=== PATIENT | female | born 1975 | race Hispanic/Latino ===

== ENCOUNTER 2017-06-18 17:09 | Inpatient (IN) | payer OTHER ==
[~2017-06-18 17:09] MED LIST: ISOVUE-370 76%-LOCM 1 ML ONE
[2017-06-18 18:07] LABS: #Basophils 0.1 thou/uL (0.0-0.2); #Lymphocytes 2.2 thou/uL (1.20-3.40); #Monocytes 0.7 thou/uL (0.11-0.59); #Neutrophils 11.7 thou/uL (1.40-6.50); %Basophils 0.5 % (0.0-1.0); %Eosinophils 0.3 % (0.0-10.0); %Lymphocytes 14.8 % (21.0-51.0); %Monocytes 4.5 % (0.0-10.0); %Neutrophils 80.1 % (42.0-75.0); Hemoglobin 13.5 g/dL (12.0-16.0); Mean Corpuscular HGB CONC 32.2 g/dL (32.0-36.0); Mean Corpuscular Hemoglobin 24.5 pg (27.0-31.0); Mean Corpuscular Volume 76.1 fl (81.0-99.0); Mean Platelet Volume 7.8 fL (7.4-10.4); Platelet Count 352 thou/uL (130-400); RBC Distribution Width 15.3 % (11.5-14.5); White Blood Cell (WBC) Count 14.6 thou/uL (4.8-10.8)
[2017-06-18 18:38] LABS: ALT (SGPT) 13 U/L (8-55); AST (SGOT) 12 U/L (5-34); Alkaline Phosphatase 46 U/L (40-150); Anion Gap 13 mmol/L (10-20); BUN (Urea Nitrogen) 14 mg/dL (7.0-18.7); Bilirubin, Total 0.2 mg/dL (0.2-1.2); Calc. Creatinine Clearance 0 mL/min (70-130); Calcium 9.8 mg/dL (7.8-10.44); Carbon Dioxide 23 mmol/L (22-29); Chloride 102 mmol/L (98-107); Estimated GFR-MDRD Greater than 90; Globulin 3.9 g/dL (2.4-3.5); Glucose 165 mg/dL (70-105); Lipase 44 U/L (8-78); Potassium 4.4 mmol/L (3.5-5.1); Protein, Total 7.9 g/dL (6.0-8.3); Sodium 134 mmol/L (136-145)
[2017-06-18 19:19] LABS: Bilirubin Negative (Negative); Blood, Urine Negative (Negative); Clarity CLEAR (Clear); Glucose, Urine (Dipstick) Negative (Negative); Leukocyte Negative (Negative); Nitrite Negative (Negative); Protein, Urine (Dipstick) Negative (Neg-Trace); Specific Gravity, Urine 1.015 (1.002-1.036); Urobilinogen 0.2 mg/dL (0.2-1.0); pH, Urine 6.5 (5.0-9.0)
[2017-06-18] MEDS ORDERED: Ondansetron HCl/PF 4 MG/2 ML Vial ONE (21:43)
[2017-06-18 22:10] LABS: Pregnancy Test - Urine (BHCG) Negative (Negative); Pregu Control Background? CLEAR/WHITE (CLR/WHITE); Pregu Control Bar Appear? YES (CONTROL BAR); Specific Gravity 1.015 (1.002-1.036)
--- NOTE | 2017-06-18 22:46 | CT ---
CT OF ABDOMEN AND PELVIS PERFORMED WITH CONTRAST ENHANCEMENT: 06/18/17 HISTORY: Abdominal pain, nausea and vomiting. The lung bases are clear. The liver and spleen show no focal abnormalities. There is suggestion of some fatty changes of the li nate. The pancreas region is unremarkable. The gallbladder has been removed. Right and left adrenal glands and right and left kidneys are normal in appearance. There is no signif icant periaortic or mesenteric adenopathy. There is a partial small bowel obstruction related to a pa raumbilical hernia with nondilated distal small bowel. CT OF PELVIS PERFORMED WITH CONTRAST ENHANCEMENT: Follicles are seen involving the right adnexa. The appendix is normal in appearance. IMPRESSION: Partial small bowel obstruction caused by paraumbilical hernia with herniation of small bowel. POS: COOPER
[2017-06-18] MEDS ORDERED: Pantoprazole 40 MG VIAL ONE (22:58)
[2017-06-19] MEDS ORDERED: Oxymetazoline HCl 0.05% ( 15 ML ) ONE (00:21)
[2017-06-19] MEDS ORDERED: Benzocaine 20% Spray 60 ML CAN ONE (00:21)
[2017-06-19] MEDS ORDERED: Ondansetron ODT 4 MG TAB SL PRN (02:09)
[2017-06-19] MEDS ORDERED: Ondansetron HCl/PF 4 MG/2 ML Vial IVP PRN ×3 (02:09→11:01)
[2017-06-19] MEDS ORDERED: Morphine 5 MG/ML SYRINGE SLOW IVP PRN ×3 (02:10→11:26)
[2017-06-19] MEDS: Sodium Chloride 0.9% 1,000 ML IV SCH ×2 (02:30→11:20)
[2017-06-19 04:38] VITALS: BMI 37.5
[2017-06-19] MEDS ORDERED: CEFAZOLIN/Water 2 GM/20 ML SYRINGE SLOW IVP SCH (07:30)
--- NOTE | 2017-06-19 07:36 | HP ---
CHIEF COMPLAINT: Abdominal pain. HISTORY: A 41-year-old female with a 2-day history of severe periumbilical pain followed by nausea a nd vomiting. Last bowel movement and flatus was yesterday. PAST MEDICAL HISTORY: Morbid obesity, diabetes, hypertension, kidney stones. PAST SURGICAL HISTORY: She has had a cholecystectomy, carpal tunnel. She had a kidney stent. MEDICATIONS: Metformin, lisinopril, Lopid, iron. ALLERGIES: No known drug allergies. FAMILY HISTORY: Diabetes. SOCIAL HISTORY: She is incarcerated. She is . No tobacco, no alcohol. PHYSICAL EXAMINATION: VITAL SIGNS: Temperature 97.6, pulse 80, blood pressure 140/87, 96% saturation. GENERAL: She is a morbidly obese female, lying still. HEENT: Unremarkable. LUNGS: Clear. HEART: Regular rate and rhythm. ABDOMEN: Obese. There is very minimal tenderness, no peritoneal signs. I cannot feel any mass. EXTREMITIES: Unremarkable. LABORATORY DATA AND IMAGING: White count 14.6, H&H is 13 and 41, platelet count 352. Electrolytes s howed glucose of 165, creatinine 0.67, otherwise fine. CT scan shows a small-bowel obstruction with a periumbilical hernia containing small bowel causing the obstruction. ASSESSMENT: Incarcerated ventral hernia with small-bowel obstruction. PLAN: Laparotomy, repair of possible small bowel resection and repair of hernia. CONSENT: I have discussed the planned procedure as well as risk of bleeding, infection, recurrence o f the hernia, injury to bowel, need to remove bowel. She understands and gives informed consent.
--- NOTE | 2017-06-19 08:49 | RAD ---
FRONTAL RADIOGRAPH ABDOMEN: Date: 06-19-17 History: Evaluate nasogastric tube, nausea, vomiting, pain. FINDINGS: There is a nasogastric tube extending into the left upper quadrant, side port near the gastroesophage al junction and the distal tip likely within the region of the gastric body. Clips in the right upper quadrant suggest prior cholecystectomy. There is contrast media within bilateral renal collecting sy stems associated with recent CT exam. IMPRESSION: Nasogastric tube as above. POS: COOPER
[2017-06-19] MEDS ORDERED: Meperidine HCl/PF 25 MG/ML VIAL SLOW IVP PRN (09:11)
[2017-06-19] MEDS ORDERED: Promethazine HCl 25 MG/ML VIAL IM PRN ×2 (09:11→11:01)
[2017-06-19] MEDS ORDERED: Promethazine HCl 25 MG/ML VIAL SLOW IVP PRN (09:11)
[2017-06-19] MEDS ORDERED: Midazolam HCl 2 mg/2 ml Vial ONE (09:21)
[2017-06-19] MEDS ORDERED: Fentanyl 100 MCG/2 ML VIAL ONE ×2 (09:22→11:42)
[2017-06-19] MEDS ORDERED: HYDROmorphone 0.5 MG/0.5 ML SYRINGE ONE (09:22)
[2017-06-19] MEDS ORDERED: CEFAZOLIN/Water 2 GM/20 ML SYRINGE ONE (09:26)
[2017-06-19] MEDS ORDERED: Dextrose 50% Abboject 50 ML SYRINGE SLOW IVP PRN (11:01)
[2017-06-19] MEDS ORDERED: Dextrose 5% in Water 1,000 ML IV PRN (11:01)
[2017-06-19] MEDS ORDERED: HYDROcodone/Acetaminophen 10/325 mg Tablet PO PRN (11:01)
[2017-06-19] MEDS ORDERED: hydrALAZINE 20 MG/ML VIAL SLOW IVP PRN (11:01)
--- NOTE | 2017-06-19 11:24 | OP ---
DATE OF PROCEDURE: 06/19/2017 PREOPERATIVE DIAGNOSIS: Incarcerated ventral hernia. SURGEON: Robbin Jj M.D. PROCEDURE PERFORMED: Open repair of incarcerated incisional hernia. INDICATIONS: The patient is a 41-year-old female who is morbidly obese, who came in with abdominal p ain and a CT scan showed a small-bowel obstruction originating from a periumbilical hernia. She had had previous surgery at the umbilicus. FINDINGS: The bowel had been reduced. The actual defect was small, 1.5 cm, fairly large hernia sac that was removed. PROCEDURE: After informed consent was obtained, the patient was taken to the operating room. She wa s given general endotracheal anesthesia. She was placed in the supine position. The abdomen was pre pped and draped in the usual fashion. An upper midline incision was performed just above the umbilic us. The subcu divided sharply. She is morbidly obese, so I really could not feel anything. Eventua lly I found the hernia sac. The hernia sac was dissected out and opened, it was an empty. There was no bowel in it at the time that it was opened. The hernia sac was excised utilizing electrocautery. The defect was small, about 1.5 cm. It was closed transversely with interrupted [id number] o f 0 Prolene. Hemostasis assured. The wound was thoroughly irrigated and irrigation fluid removed. The subcutaneous reapproximated with interrupted 3-0 Vicryl. The skin closed with skin joan. Omer rile bandage applied. The patient tolerated the procedure well and transferred to recovery in good c ondition. Sponge and needle count verified correct x2.
[2017-06-19] MEDS ORDERED: Ondansetron HCl/PF 4 MG/2 ML Vial ONE (14:25)
[2017-06-19] MEDS ORDERED: Lidocaine 1% PF 5 ML VIAL ONE (14:25)
[2017-06-19] MEDS ORDERED: Glycopyrrolate 0.2 MG/ML 5 ML SYRINGE ONE (14:25)
[2017-06-19] MEDS ORDERED: Dexamethasone 20 MG/5 ML VIAL ONE (14:25)
[2017-06-19] MEDS ORDERED: Propofol 200 MG/20 ML VIAL ONE (14:25)
[2017-06-19] MEDS: Lactated Ringer's 1,000 ML IV SCH ×2 (14:47→20:54)
[2017-06-19] MEDS: HYDROcodone/Acetaminophen 10/325 mg Tablet PO PRN ×2 (14:47→20:53)
[2017-06-19] MEDS: Famotidine 20 MG TAB PO SCH ×2 (20:02→20:53)
[2017-06-19] MEDS: Famotidine/PF 20 mg/2ml Vial SLOW IVP SCH (20:04)
[2017-06-20] MEDS: HYDROcodone/Acetaminophen 10/325 mg Tablet PO PRN ×2 (04:04→09:33)
[2017-06-20 06:11] LABS: #Basophils 0.1 thou/uL (0.0-0.2); #Lymphocytes 1.7 thou/uL (1.20-3.40); #Monocytes 0.6 thou/uL (0.11-0.59); #Neutrophils 8.7 thou/uL (1.40-6.50); %Basophils 0.7 % (0.0-1.0); %Eosinophils 0.2 % (0.0-10.0); %Lymphocytes 15.4 % (21.0-51.0); %Monocytes 5.7 % (0.0-10.0); %Neutrophils 77.9 % (42.0-75.0); Anion Gap 12 mmol/L (10-20); BUN (Urea Nitrogen) 6 mg/dL (7.0-18.7); Calc. Creatinine Clearance 164 mL/min (70-130); Calcium 8.9 mg/dL (7.8-10.44); Carbon Dioxide 24 mmol/L (22-29); Chloride 105 mmol/L (98-107); Estimated GFR-MDRD Greater than 90; Glucose 147 mg/dL (70-105); Hemoglobin 11.8 g/dL (12.0-16.0); Mean Corpuscular Hemoglobin 24.1 pg (27.0-31.0); Mean Corpuscular Volume 77.7 fl (81.0-99.0); Mean Platelet Volume 8.3 fL (7.4-10.4); Platelet Count 295 thou/uL (130-400); RBC Distribution Width 15.5 % (11.5-14.5); Sodium 137 mmol/L (136-145); White Blood Cell (WBC) Count 11.2 thou/uL (4.8-10.8)
[2017-06-20] MEDS ORDERED: Enoxaparin Sodium 40 MG/0.4 ML SYRINGE SC SCH (09:00)
[2017-06-20] MEDS: Famotidine 20 MG TAB PO SCH (09:32)
[2017-06-20] MEDS: Famotidine/PF 20 mg/2ml Vial SLOW IVP SCH (09:38)
[2017-06-20 11:54] VITALS: BP 116/79; TEMP 97.7
[2017-06-20] MEDS: Lactated Ringer's 1,000 ML IV SCH (12:29)
--- NOTE | 2017-06-20 15:06 | DIS ---
DISCHARGE DIAGNOSIS: Incarcerated ventral hernia. PROCEDURES DURING ADMISSION: Repair of incarcerated ventral hernia. HOSPITAL COURSE: The patient was admitted. She had a small-bowel obstruction with small bowel incar cerated in this ventral periumbilical hernia. She had a previous laparoscopic cholecystectomy so we are calling it incisional. She went to the operating room where she underwent an abdominal wall expl oration and repair of hernia. Postoperatively, she has done well. She is tolerating liquids well. Pain is controlled on p.o. medications. She is discharged home in good condition, afebrile on Tyleno l #3 one to two p.o. q.4 hours p.r.n., Colace 1 p.o. b.i.d. She will follow up with me in 2 weeks.
== END 2017-06-20 12:21 | DRG 355 ==
LOC: ERS 17:09 → OBSVTOIN 06-19 → SURG A 06-19
PROVIDERS: ADMIT Surgery; ATTEND Surgery
PROC: 0WQF0ZZ Repair Abdominal Wall, Open Approach (ICD-10-PCS; principal; 2017-06-19)
DX: K43.0 Incisional hernia with obstruction, without gangrene (principal); E66.01 Morbid (severe) obesity due to excess calories; I10 Essential (primary) hypertension; Z87.442 Personal history of urinary calculi; E11.9 Type 2 diabetes mellitus without complications; Z79.84 Long term (current) use of oral hypoglycemic drugs; Z68.37 Body mass index [BMI] 37.0-37.9, adult
CPT/HCPCS: 36415; 74018; 74177; 80048; 80053; 81003; 81025; 83690; 85025; 96361; 96372; 96374; 96375; J2270; A4216; C9113; J0131; J1100; J1170; J1650; J2001; J2250; J2405; J2704; J3010

== ENCOUNTER 2017-06-30 15:11 | Emergency (ER) | payer OTHER ==
[2017-06-30 15:52] LABS: #Eosinphils 0.1 thou/uL (0.0-0.7); #Lymphocytes 1.7 thou/uL (1.20-3.40); #Monocytes 0.9 thou/uL (0.11-0.59); #Neutrophils 11.4 thou/uL (1.40-6.50); %Basophils 0.2 % (0.0-1.0); %Eosinophils 0.9 % (0.0-10.0); %Lymphocytes 12.3 % (21.0-51.0); %Neutrophils 80.6 % (42.0-75.0); Mean Corpuscular HGB CONC 32.1 g/dL (32.0-36.0); Mean Corpuscular Hemoglobin 24.6 pg (27.0-31.0); Mean Corpuscular Volume 76.6 fl (81.0-99.0); Mean Platelet Volume 7.9 fL (7.4-10.4); Platelet Count 361 thou/uL (130-400); RBC Distribution Width 15.4 % (11.5-14.5); Red Blood Cell (RBC) Count 5.28 mill/uL (4.20-5.40); White Blood Cell (WBC) Count 14.2 thou/uL (4.8-10.8)
[2017-06-30 16:15] LABS: ALT (SGPT) 26 U/L (8-55); AST (SGOT) 13 U/L (5-34); Alkaline Phosphatase 48 U/L (40-150); Anion Gap 14 mmol/L (10-20); BUN (Urea Nitrogen) 14 mg/dL (7.0-18.7); Bilirubin, Total 0.3 mg/dL (0.2-1.2); Calc. Creatinine Clearance 0 mL/min (70-130); Calcium 9.8 mg/dL (7.8-10.44); Carbon Dioxide 22 mmol/L (22-29); Chloride 105 mmol/L (98-107); Estimated GFR-MDRD 89; Globulin 3.7 g/dL (2.4-3.5); Glucose 154 mg/dL (70-105); Lipase 90 U/L (8-78); Potassium 4.3 mmol/L (3.5-5.1); Protein, Total 7.7 g/dL (6.0-8.3); Sodium 137 mmol/L (136-145)
[2017-06-30 17:04] LABS: Bilirubin Negative (Negative); Blood, Urine Moderate (Negative); Clarity CLEAR (Clear); Glucose, Urine (Dipstick) Negative (Negative); Leukocyte Negative (Negative); Nitrite Negative (Negative); Protein, Urine (Dipstick) Negative (Neg-Trace); Specific Gravity, Urine 1.016 (1.002-1.036); Urobilinogen 0.2 mg/dL (0.2-1.0); pH, Urine 5.5 (5.0-9.0)
[2017-06-30 17:06] LABS: Bacteria/HPF None Seen HPF (None Seen); Hyaline Casts/LPF 0-3 HYALINE CAST LPF (0-3 Hyaline); Squamous Epithelial 0-3 HPF (0-3); WBC/HPF 0-3 HPF (0-3)
[2017-06-30 17:09] LABS: Pregnancy Test - Urine (BHCG) Negative (Negative); Pregu Control Background? CLEAR/WHITE (CLR/WHITE); Pregu Control Bar Appear? YES (CONTROL BAR); Specific Gravity 1.016 (1.002-1.036)
[2017-06-30 17:19] LABS: Crystals/HPF 2+ CA OXALATE HPF (Negative)
[2017-06-30] MEDS ORDERED: Ondansetron HCl/PF 4 MG/2 ML Vial ONE (18:23)
[2017-06-30] MEDS ORDERED: Ketorolac Tromethamine 30 MG/ML VIAL ONE (19:17)
--- NOTE | 2017-06-30 20:23 | CT ---
CT ABDOMEN AND PELVIS WITH IV CONTRAST: Date: 06-30-17 History: Constant sharp abdominal pain after hernia repair and recent surgery for bowel obstruction o n . Comparison: 06-18-17 FINDINGS: There is perinephric stranding seen on the left with mild left hydronephrosis and hydroureter with a tiny punctate approximately 2 mm calculus at the left UVJ. Post cholecystectomy changes are noted. There is a tiny pleural based nodular density at the right lung base, not seen on the prior exam, pro bably related to minimal atelectasis given interval change. Lung bases are otherwise clear. The liver does demonstrate diminished attenuation relative to the spleen suggesting mild fatty infilt ration. The spleen, pancreas, bilateral adrenal glands, right kidney, abdominal aorta, urinary bladder, uteru s, and adnexal structures have a normal CT appearance. There are post-surgical changes related to recent hernia repair of an umbilical hernia. There is mild patchy decreased attenuation in the region of prior hernia likely related to post-surgical changes a nd mild edema. No free fluid, fluid collection, or lymphadenopathy is seen in the abdomen or pelvis. No other interv al change. IMPRESSION: 1. Partially obstructing approximately 2 mm calculus at the left UVJ with mild hydronephrosis and per inephric stranding noted. Associated infection on the left cannot be excluded. However, no parenchyma l abnormalities are seen involving the left kidney. 2. No CT evidence of appendicitis. 3. No evidence of a bowel obstruction. 4. Mild fatty infiltration of the liver. 5. Post cholecystectomy changes. 6. Post-surgical changes related to prior hernia repair. POS: COOPER
== END 2017-06-30 21:00 | disposition home or self-care (01) ==
LOC: EEVIPCON 15:11 → ERS 15:11
DX: N13.2 Hydronephrosis with renal and ureteral calculous obstruction (principal); E11.9 Type 2 diabetes mellitus without complications; F41.9 Anxiety disorder, unspecified; Z79.899 Other long term (current) drug therapy; Z79.84 Long term (current) use of oral hypoglycemic drugs
CPT/HCPCS: 36415; 74177; 80053; 81003; 81015; 81025; 83690; 85025; 96374; 96375; J1885; J2270; J2405